=== PATIENT | male | born 1990 | race African-American/Black ===

== ENCOUNTER 2018-01-30 13:08 | Emergency (ER) | payer OTHER, MEDICAID, SELFPAY ==
[2018-01-30 13:09] VITALS: BP 146/87; PULSE 63; RESP 14; TEMP 36.9; O2SAT 98; BMI 27.3
--- NOTE | 2018-01-30 13:33 | ED.VISSUMM ---
- ER Visit Summary Date of Service: 01/30/18 Chief Complaint: Head injury History of Present Illness: The patient is a 27-year-old male who presents with a head injury. He works at [employer]. He was pushing carts and hit his head into a low overhanging wall. He did sustain an abrasion to his nasal bridge from his glasses. He denies any loss of consciousness or amnesia. He denies any headache nausea or vomiting. He is not on any anticoagulation. He denies any other injuries. Physical Examination: Afebrile vitals are normal Patient has a nasal abrasion and there is some mild soft tissue swelling to the forehead No palpable skull fracture No hemotympanum raccoon eyes or chino sign No midface instability or jaw malocclusion Heart regular rate and rhythm Lungs are clear Abdomen soft Test Results: Not indicated Emergency Department Course and Treatment: Patient is Croatian head CT rule negative. ACEP head injury guidelines would also not suggest a head CT is warranted. I believe radiation risk outweighs benefit. Patient advised on supportive care. He was advised on signs and symptoms to monitor for, conditions which should prompt return here to the emergency department for reevaluation. Follow-up as an outpatient was discharged home. Treatment Plan: [] Disposition: Discharge Impression: Closed head injury This note was generated with [employer] dictation software. It may contain incorrect words, spelling, and punctuation that were not noted in review of the chart prior to signing ED Disposition - Plan for ED Patient: Chief Complaint: Head Injury Referrals: NOT,DEFINED [Primary Care Provider] -
--- NOTE | 2018-01-30 13:37 | ED.DCSUM_ITS ---
- ER Visit Summary Date of Service: 01/30/18 Chief Complaint: Head injury History of Present Illness: The patient is a 27-year-old male who presents with a head injury. He works at [employer]. He was pushing carts and hit his head into a low overhanging wall. He did sustain an abrasion to his nasal bridge from his glasses. He denies any loss of consciousness or amnesia. He denies any headache nausea or vomiting. He is not on any anticoagulation. He denies any other injuries. Physical Examination: Afebrile vitals are normal Patient has a nasal abrasion and there is some mild soft tissue swelling to the forehead No palpable skull fracture No hemotympanum raccoon eyes or chino sign No midface instability or jaw malocclusion Heart regular rate and rhythm Lungs are clear Abdomen soft Test Results: Not indicated Emergency Department Course and Treatment: Patient is [place] head CT rule negative. ACEP head injury guidelines would also not suggest a head CT is warranted. I believe radiation risk outweighs benefit. Patient advised on supportive care. He was advised on signs and symptoms to monitor for, conditions which should prompt return here to the emergency department for reevaluation. Follow-up as an outpatient was discharged home. Treatment Plan: [] Disposition: Discharge Impression: Closed head injury This note was generated with [employer] dictation software. It may contain incorrect words, spelling, and punctuation that were not noted in review of the chart prior to signing ED Disposition - Plan for ED Patient: Chief Complaint: Head Injury Referrals: NOT,DEFINED [Primary Care Provider] -
--- NOTE | 2018-01-30 13:37 | ED.DEP ---
ED Disposition - Plan for ED Patient: Chief Complaint: Head Injury Instructions: ED Head Injury Closed Referrals: NOT,DEFINED [Primary Care Provider] - [facility] [GROUP OF PHYSICIANS] -
== END 2018-01-30 13:57 | disposition home or self-care (01) ==
PROVIDERS: Emergency Provider Emergency Medicine
DX: S00.31XA Abrasion of nose, initial encounter (principal); R40.2410 Glasgow coma scale score 13-15, unspecified time; W22.8XXA Striking against or struck by other objects, initial encounter; Y93.9 Activity, unspecified; Y92.9 Unspecified place or not applicable; I10 Essential (primary) hypertension; Z79.899 Other long term (current) drug therapy
CPT/HCPCS: 99282